=== PATIENT | male | born 1975 | race African-American/Black ===

== ENCOUNTER 2016-07-25 15:14 | Emergency (ER) | payer MEDICAID ==
[~2016-07-25] VITALS: Ht 177.8 cm; Wt 118.0 kg
[2016-07-25] MEDS ORDERED: DEXTROSE 50% WATER 50ML SYRINGE IV ONE ×2 (15:45→15:46)
[2016-07-25] MEDS ORDERED: ONDANSETRON HCL 4MG/2ML VIAL IV ONE (15:45)
[2016-07-25 16:11] LABS: CHLORIDE 102 mEq/L (98-107); INDEX HEMOLYSI 1 (1-3); INDEX ICTERIC 1 (1-4); INDEX LIPEMIC 1 (1-3)
[2016-07-25 16:13] LABS: BASOPHILS % 0.4 % (0.0-2.0); EOSINOPHILS % 0.8 % (0.0-5.0); HEMATOCRIT. 47.3 % (42.0-52.0); HEMOGLOBIN. 15.9 g/dL (14.0-18.0); LYMPHOCYTES % 12.7 % (20.0-50.0); MEAN CORPUSCULAR HEMOGLOBIN 28.9 pg (28.0-32.0); MEAN CORPUSCULAR HGB CONC 33.6 g/dL (31.0-37.0); MEAN PLATELET VOLUME 8.4 fl (7.4-10.4); MONOCYTES % 9.6 % (2.0-8.0); NEUTROPHILS % 76.5 % (40.0-76.0); PLATELET 323 x1000/uL (130-400); RED CELL DISTRIBUTION WIDTH 13.7 % (11.6-14.6); WHITE BLOOD COUNT 10.2 x1000/uL (4.5-11.0)
[2016-07-25 16:15] LABS: INR 1.1; PARTIAL THROMBOPLASTIN TIME 26.6 sec (24.0-34.0); PROTHROMBIN TIME 11.2 sec
[2016-07-25 16:19] LABS: ALANINE AMINOTRANSFERASE 25 IU/L (13-61); ALBUMIN 3.7 g/dL (3.4-5.0); AMYLASE 75 IU/L (25-115); ANION GAP 14; CALCIUM 8.8 mg/dL (8.5-10.1); CARBON DIOXIDE 26 mEq/L (21-32); ETHANOL BLOOD < 10 mg/dL; LIPASE 331 IU/L (73-393); UREA NITROGEN BLOOD 22 mg/dL (7-21); eGFR > 60 mL/min (>60)
[2016-07-25 19:15] VITALS: BP 170/98
== END 2016-07-25 21:30 | disposition home or self-care (01) ==
LOC: ER 15:14
DX: E11.9 Type 2 diabetes mellitus without complications (principal); R41.82 Altered mental status, unspecified; G47.33 Obstructive sleep apnea (adult) (pediatric); I11.0 Hypertensive heart disease with heart failure; I50.9 Heart failure, unspecified; R61 Generalized hyperhidrosis; Z79.4 Long term (current) use of insulin; Z86.73 Personal history of transient ischemic attack (TIA), and cerebral infarction without residual deficits; Z88.6 Allergy status to analgesic agent
CPT/HCPCS: 36415; 71010; 80053; 82150; 82962; 83690; 85025; 85610; 85730; 93005; 96374; 99285; G0482; J2405; Z7610

== ENCOUNTER 2017-08-24 17:59 | Inpatient (IN) | payer MEDICAID ==
[~2017-08-24] VITALS: Ht 193 cm; Wt 122.5 kg
[2017-08-24 23:05] LABS: BASOPHILS % 0.2 % (0.0-2.0); EOSINOPHILS % 0.1 % (0.0-5.0); HEMATOCRIT. 51.6 % (42.0-52.0); HEMOGLOBIN. 17.6 g/dL (14.0-18.0); LYMPHOCYTES % 9.7 % (20.0-50.0); MEAN CORPUSCULAR HEMOGLOBIN 29.2 pg (28.0-32.0); MEAN CORPUSCULAR VOLUME 85.7 fL (80.0-94.0); MEAN PLATELET VOLUME 8.4 fl (7.4-10.4); MONOCYTES % 5.7 % (2.0-8.0); NEUTROPHILS % 84.3 % (40.0-76.0); PLATELET 352 x1000/uL (130-400); RED BLOOD CELL COUNT 6.01 mill/uL (4.7-6.1); RED CELL DISTRIBUTION WIDTH 13.4 % (11.6-14.6)
[2017-08-24 23:13] LABS: CHLORIDE 101 mEq/L (98-107)
[2017-08-24 23:21] LABS: ETHANOL BLOOD < 10 mg/dL
[2017-08-24 23:25] LABS: BETA HYDROXYBUTYRATE 0.2 mMol/L (0.0-0.3)
[2017-08-24 23:35] LABS: CREATINE KINASE 1611 IU/L (39-308)
[2017-08-25 01:34] LABS: CLARITY URINE CLEAR (CLEAR); COLOR URINE YELLOW (YELLOW); KETONES URINE TRACE (NEGATIVE); LEUKOCYTE ESTERASE URINE NEGATIVE (NEGATIVE); NITRITE URINE NEGATIVE (NEGATIVE); OCCULT BLOOD URINE TRACE (NEGATIVE); PROTEIN URINE 3+ (NEGATIVE); SPECIFIC GRAVITY URINE 1.023 (1.005-1.030); UROBILINOGEN URINE 0.2 E.U./dL (0.2-1.0)
[2017-08-25] MEDS ORDERED: SODIUM CHLORIDE 0.9% 1000ML BAG (SEPSIS BOLUS) IV NR (03:00)
[2017-08-25] MEDS: SODIUM CHLORIDE 0.9% 1,000 ML IV SCH ×2 (07:15→20:23)
[2017-08-25] MEDS ORDERED: ACETAMINOPHEN 325MG TABLET PO PRN (10:15)
[2017-08-25] MEDS ORDERED: ONDANSETRON HCL 4MG/2ML VIAL IV PRN (10:15)
[2017-08-25] MEDS ORDERED: MAGNESIUM/ALUMINUM HYDROXIDE/SIMETHICONE 30ML UDC PO PRN (10:15)
[2017-08-25] MEDS ORDERED: LORAZEPAM 0.5MG TABLET PO PRN (10:15)
[2017-08-25] MEDS ORDERED: HYDROCODONE/ACETAMINOPHEN 5/325MG TABLET PO PRN (10:15)
[2017-08-25] MEDS ORDERED: GUAIFENESIN 200MG/10ML SUGAR FREE UDC PO PRN (10:15)
[2017-08-25] MEDS ORDERED: HYDROCODONE/ACETAMINOPHEN 10/325MG TABLET PO PRN (10:15)
[2017-08-25] MEDS ORDERED: DOCUSATE SODIUM 100MG CAPSULE PO PRN (10:15)
[2017-08-25] MEDS ORDERED: IPRATROPIUM/ALBUTEROL 0.5-3(2.5)MG/3ML NEB INH PRN (10:15)
[2017-08-25] MEDS ORDERED: DIPHENHYDRAMINE 50MG/ML VIAL IV PRN (10:15)
[2017-08-25] MEDS ORDERED: ACETAMINOPHEN 650MG/20.3ML UDC GT PRN (10:15)
[2017-08-25] MEDS ORDERED: ACETAMINOPHEN 650MG SUPP PR PRN (10:15)
[2017-08-25] MEDS ORDERED: NA PHOS,M-B/NA PHOS,DI-BA ENEMA 118ML PR PRN (10:15)
[2017-08-25] MEDS ORDERED: AMLODIPINE 5MG TABLET PO NR (11:15)
[2017-08-25 11:32] LABS: AMMONIA < 10 uMol/L (<32)
[2017-08-25 11:48] LABS: FOLIC ACID (FOLATE) SERUM 13.5 ng/mL (>5.38)
[2017-08-25 12:02] LABS: *AMPHETAMINES SCREEN URINE NEGATIVE (NEGATIVE); *BARBITURATES SCREEN URINE NEGATIVE (NEGATIVE); *BENZODIAZEPINES SCREEN URINE NEGATIVE (NEGATIVE); *COCAINE SCREEN URINE NEGATIVE (NEGATIVE)
[2017-08-25 12:03] LABS: CANNABINOID URINE SCREEN NEGATIVE (NEGATIVE); METHADONE URINE SCREEN NEGATIVE (NEGATIVE); OPIATES URINE SCREEN NEGATIVE (NEGATIVE); PHENCYCLIDINE URINE SCREEN NEGATIVE (NEGATIVE)
[2017-08-25 12:30] VITALS: BP 194/107
[2017-08-25] MEDS: THIAMINE HCL 100MG TABLET PO SCH (13:00)
[2017-08-25] MEDS: MULTIVITAMINS,THER W-MINERALS TABLET PO SCH (13:00)
[2017-08-25] MEDS ORDERED: ONDANSETRON 4MG ODT PO PRN (13:45)
[2017-08-25] MEDS: HYDRALAZINE HCL 25MG TABLET PO SCH ×2 (14:51→22:17)
[2017-08-25] MEDS: LORATADINE 10MG TABLET PO SCH (14:53)
[2017-08-25 16:17] VITALS: BP 184/116
[2017-08-25 17:27] LABS: T4 FREE 0.86 ng/dL (0.76-1.46)
[2017-08-25 20:00] VITALS: BP 188/116
[2017-08-25] MEDS: AMLODIPINE 5MG TABLET PO SCH (20:21)
[2017-08-25 20:48] LABS: AMMONIA 38 uMol/L (<32)
[2017-08-25] MEDS ORDERED: DEXTROSE 50% WATER 50ML SYRINGE IV PRN (22:15)
[2017-08-25] MEDS: CLONIDINE 0.1MG TABLET PO PRN (23:10)
[2017-08-25] MEDS: INSULIN LISPRO 100 UNITS/ML SUBCUT SCH (23:16)
[2017-08-26] VITALS (7 sets, daily range): BP systolic 137–178; BP diastolic 85–114
[2017-08-26] MEDS: SODIUM CHLORIDE 0.9% 1,000 ML IV SCH ×4 (04:22→23:15)
[2017-08-26] MEDS: HYDRALAZINE HCL 25MG TABLET PO SCH ×3 (05:14→22:16)
[2017-08-26] MEDS: INSULIN LISPRO 100 UNITS/ML SUBCUT SCH ×4 (06:31→22:20)
[2017-08-26] MEDS: BLOOD SUGAR DIAGNOSTIC STRIP TEST SCH ×4 (06:31→20:51)
[2017-08-26 06:48] LABS: BASOPHILS % 0.1 % (0.0-2.0); EOSINOPHILS % 1.4 % (0.0-5.0); HEMATOCRIT. 43.9 % (42.0-52.0); HEMOGLOBIN. 14.9 g/dL (14.0-18.0); LYMPHOCYTES % 23.4 % (20.0-50.0); MEAN CORPUSCULAR VOLUME 85.4 fL (80.0-94.0); MEAN PLATELET VOLUME 8.3 fl (7.4-10.4); MONOCYTES % 12.3 % (2.0-8.0); NEUTROPHILS % 62.8 % (40.0-76.0); PLATELET 288 x1000/uL (130-400); RED BLOOD CELL COUNT 5.14 mill/uL (4.7-6.1); RED CELL DISTRIBUTION WIDTH 13.1 % (11.6-14.6)
[2017-08-26 07:15] LABS: T4 FREE 0.99 ng/dL (0.76-1.46)
[2017-08-26] MEDS: THIAMINE HCL 100MG TABLET PO SCH (08:01)
[2017-08-26] MEDS: LORATADINE 10MG TABLET PO SCH (08:01)
[2017-08-26] MEDS: AMLODIPINE 5MG TABLET PO SCH ×2 (08:01→20:51)
[2017-08-26] MEDS: MULTIVITAMINS,THER W-MINERALS TABLET PO SCH (08:01)
[2017-08-26] MEDS: CLONIDINE 0.1MG TABLET PO PRN (13:06)
[2017-08-27 00:51] VITALS: BP 183/105
[2017-08-27] MEDS: CLONIDINE 0.1MG TABLET PO PRN ×2 (01:03→08:12)
[2017-08-27 04:00] VITALS: BP 149/86
[2017-08-27] MEDS: SODIUM CHLORIDE 0.9% 1,000 ML IV SCH (06:16)
[2017-08-27] MEDS: HYDRALAZINE HCL 25MG TABLET PO SCH ×2 (06:16→12:16)
[2017-08-27] MEDS: BLOOD SUGAR DIAGNOSTIC STRIP TEST SCH ×2 (06:21→12:25)
[2017-08-27] MEDS: INSULIN LISPRO 100 UNITS/ML SUBCUT SCH ×2 (06:25→12:47)
[2017-08-27 08:00] VITALS: BP 185/114
[2017-08-27] MEDS: THIAMINE HCL 100MG TABLET PO SCH (08:10)
[2017-08-27] MEDS: MULTIVITAMINS,THER W-MINERALS TABLET PO SCH (08:11)
[2017-08-27] MEDS: LORATADINE 10MG TABLET PO SCH (08:12)
[2017-08-27] MEDS: AMLODIPINE 5MG TABLET PO SCH (08:13)
[2017-08-27 12:00] VITALS: BP 183/116
[2017-08-27] MEDS ORDERED: CLONIDINE 0.2MG TABLET PO NR (15:00)
[2017-08-27] MEDS ORDERED: LOSARTAN POTASSIUM 25 MG TABLET PO SCH (15:00)
[2017-08-27] MEDS ORDERED: HYDR-4134 PO (15:04)
[2017-08-27] MEDS ORDERED: CLAR10 PO (15:04)
[2017-08-27] MEDS ORDERED: INSLIS SUBCUT (15:04)
[2017-08-27] MEDS ORDERED: AMLO5TAB88 PO (15:04)
[2017-08-27] MEDS ORDERED: ATOR10TA PO (15:04)
[2017-08-27] MEDS ORDERED: THIA100T72 PO (15:04)
[2017-08-27] MEDS ORDERED: ATORVASTATIN CALCIUM 10MG TABLET PO SCH (21:00)
== END 2017-08-27 15:30 | disposition left against medical advice (07) | DRG 469 ==
LOC: ER 17:59 → 6WST 08-25 02:56 → ENRESERV 08-25 10:41
PROVIDERS: ADMIT Internal Medicine; ATTEND Internal Medicine
DX: N17.9 Acute kidney failure, unspecified (principal); G92 Toxic encephalopathy; M62.82 Rhabdomyolysis; I13.0 Hypertensive heart and chronic kidney disease with heart failure and stage 1 through stage 4 chronic kidney disease, or unspecified chronic kidney disease; I50.9 Heart failure, unspecified; E11.22 Type 2 diabetes mellitus with diabetic chronic kidney disease; E11.649 Type 2 diabetes mellitus with hypoglycemia without coma; N18.9 Chronic kidney disease, unspecified; E11.65 Type 2 diabetes mellitus with hyperglycemia; Z79.4 Long term (current) use of insulin; Z86.73 Personal history of transient ischemic attack (TIA), and cerebral infarction without residual deficits; Z88.6 Allergy status to analgesic agent; Z88.8 Allergy status to other drugs, medicaments and biological substances
CPT/HCPCS: 36415; 70450; 70551; 71045; 76770; 80048; 80053; 80061; 80305; 81003; 82010; 82140; 82550; 82570; 82607; 82746; 82962; 83036; 83690; 83735; 84156; 84439; 84443; 84481; 85025; 87040; 87077; 87086; 96360; 96361; 97162; 97166; 99285; G0482; J1815; J7030

== ENCOUNTER 2017-09-24 15:00 | Emergency (ER) | payer MEDICAID ==
[~2017-09-24] VITALS: Ht 185.4 cm; Wt 102.1 kg
[~2017-09-24 15:00] MED LIST: AMLO5TAB88 PO; ATOR10TA PO; CLAR10 PO; HYDR-4134 PO; INSLIS SUBCUT; THIA100T72 PO
[2017-09-24] MEDS ORDERED: ACETAMINOPHEN 325MG TABLET PO ONE (16:15)
[2017-09-24] MEDS ORDERED: CLONIDINE 0.2MG TABLET PO ONE (16:30)
[2017-09-24] MEDS ORDERED: CLONIDINE 0.1MG TABLET PO ONE (18:30)
[2017-09-24] MEDS ORDERED: AMLODIPINE 5MG TABLET PO ONE (18:30)
[2017-09-24 20:17] VITALS: BP 166/88
== END 2017-09-24 20:27 | disposition home or self-care (01) ==
LOC: ER 15:40
DX: I13.0 Hypertensive heart and chronic kidney disease with heart failure and stage 1 through stage 4 chronic kidney disease, or unspecified chronic kidney disease (principal); I50.9 Heart failure, unspecified; N18.9 Chronic kidney disease, unspecified; E11.22 Type 2 diabetes mellitus with diabetic chronic kidney disease; M79.642 Pain in left hand
CPT/HCPCS: 73130; 93971; 99284

== ENCOUNTER 2018-04-14 12:21 | Emergency (ER) | payer MEDICAID ==
[~2018-04-14] VITALS: Ht 193 cm; Wt 120.0 kg
[2018-04-14] MEDS ORDERED: MORPHINE SULFATE 10 MG/ML CPJ IM ONE (15:00)
[2018-04-14] MEDS ORDERED: ONDANSETRON HCL 4MG/2ML INJ IM ONE (15:00)
[2018-04-14] MEDS ORDERED: CLONIDINE 0.2MG TABLET PO ONE (17:00)
[2018-04-14 17:53] VITALS: BP 170/100
== END 2018-04-14 17:55 | disposition home or self-care (01) ==
LOC: ER 15:39
DX: A08.4 Viral intestinal infection, unspecified (principal); S09.90XA Unspecified injury of head, initial encounter; I13.0 Hypertensive heart and chronic kidney disease with heart failure and stage 1 through stage 4 chronic kidney disease, or unspecified chronic kidney disease; E11.22 Type 2 diabetes mellitus with diabetic chronic kidney disease; N18.9 Chronic kidney disease, unspecified; I50.9 Heart failure, unspecified; Z86.73 Personal history of transient ischemic attack (TIA), and cerebral infarction without residual deficits; Z79.4 Long term (current) use of insulin; Z88.6 Allergy status to analgesic agent; W22.8XXA Striking against or struck by other objects, initial encounter; Y93.89 Activity, other specified; Y92.810 Car as the place of occurrence of the external cause
CPT/HCPCS: 96372; 99283; J2270; J2405

== ENCOUNTER 2018-05-20 12:29 | Emergency (ER) | payer MEDICAID ==
[~2018-05-20] VITALS: Ht 177.8 cm; Wt 120.0 kg
[2018-05-20 12:32] VITALS: BP 160/88
== END 2018-05-20 15:50 | disposition left against medical advice (07) ==
LOC: ER 12:29
DX: Z53.21 Procedure and treatment not carried out due to patient leaving prior to being seen by health care provider (principal)

== ENCOUNTER 2018-06-16 14:00 | Emergency (ER) | payer MEDICAID ==
[~2018-06-16] VITALS: Ht 193 cm; Wt 123.0 kg
[2018-06-16 17:41] VITALS: BP 133/82
== END 2018-06-16 22:00 | disposition left against medical advice (07) ==
LOC: ER 14:00
DX: Z53.21 Procedure and treatment not carried out due to patient leaving prior to being seen by health care provider (principal)
CPT/HCPCS: 93005

== ENCOUNTER 2018-09-20 18:24 | Emergency (ER) | payer MEDICAID ==
[~2018-09-20] VITALS: Ht 177.8 cm; Wt 105.0 kg
[2018-09-20] MEDS ORDERED: DEXTROSE 50% WATER 50ML SYRINGE IV ONE (19:15)
[2018-09-20 19:43] LABS: BASOPHILS % 0.1 % (0.0-2.0); EOSINOPHILS % 0.6 % (0.0-5.0); HEMOGLOBIN. 15.1 g/dL (14.0-18.0); LYMPHOCYTES % 10.1 % (20.0-50.0); MEAN CORPUSCULAR HEMOGLOBIN 29.1 pg (28.0-32.0); MEAN CORPUSCULAR VOLUME 86.3 fL (80.0-94.0); MEAN PLATELET VOLUME 8.6 fl (7.4-10.4); MONOCYTES % 7.3 % (2.0-8.0); NEUTROPHILS % 81.9 % (40.0-76.0); PLATELET 356 x1000/uL (130-400); RED BLOOD CELL COUNT 5.21 mill/uL (4.7-6.1); RED CELL DISTRIBUTION WIDTH 13.6 % (11.6-14.6)
[2018-09-20 19:44] LABS: CHLORIDE 106 mEq/L (98-107)
[2018-09-20 19:52] LABS: CREATINE KINASE 320 IU/L (39-308)
[2018-09-20 19:55] LABS: CREATINE KINASE MB FRACTION 4.1 ng/mL (0.5-3.6)
[2018-09-20 21:49] VITALS: BP 173/100
== END 2018-09-20 22:53 | disposition home or self-care (01) ==
LOC: ER 18:24
DX: E11.649 Type 2 diabetes mellitus with hypoglycemia without coma (principal); G93.41 Metabolic encephalopathy; N28.9 Disorder of kidney and ureter, unspecified; I10 Essential (primary) hypertension; E78.00 Pure hypercholesterolemia, unspecified; Z86.73 Personal history of transient ischemic attack (TIA), and cerebral infarction without residual deficits; Z79.4 Long term (current) use of insulin; Z88.6 Allergy status to analgesic agent
CPT/HCPCS: 36415; 80053; 82550; 82553; 82962; 83690; 84484; 85025; 93005; 99284; Z7610